=== PATIENT | female | born 1960 | race Caucasian/White ===

== ENCOUNTER 2021-10-23 09:56 | Inpatient (IN) | payer OTHER ==
[~2021-10-23] VITALS: Ht 165.1 cm; Wt 92.1 kg
[~2021-10-23 09:56] MED LIST: TRAMADOL 50 MG50 MG PO
[2021-10-23 10:06] VITALS: BP 139/82
[2021-10-23 12:56] LABS: ABSOLUTE LYMPHOCYTES 0.9 thou/uL (0.8-5.3); ABSOLUTE MONOCYTES 0.5 thou/uL (0.0-1.2); ABSOLUTE NEUTROPHILS 4.4 thou/uL (1.6-8.1); BASOPHILS 0.3 %; EOSINOPHILS 0.1 %; HEMATOCRIT 35.2 % (37.0-47.0); LYMPHOCYTES 15.5 %; MCH 29.4 pg (26.0-34.0); MCHC 34.2 g/dL (28.0-37.0); MCV 85.8 fL (80.0-100.0); MONOCYTES 8.5 %; MPV 7.4 fl. (7.2-11.1); NUCLEATED RBCS 0 /100WBC; PLATELET COUNT* 245 thou/uL (150-400); POLYS 75.6 %; WBC 5.9 thou/uL (4.0-11.0)
[2021-10-23 13:08] LABS: CALCIUM 8.2 mg/dL (8.5-10.1); CREATININE 0.8 mg/dL (0.6-1.3); POTASSIUM 3.2 mmol/L (3.5-5.1)
[2021-10-23 13:12] LABS: ALBUMIN 3.2 g/dL (3.4-5.0); TOTAL BILIRUBIN 0.7 mg/dL (<0.1-1.0); TOTAL PROTEIN 7.6 g/dL (6.4-8.2)
[2021-10-23 17:15] VITALS: BP 150/81
[2021-10-23 21:15] VITALS: BP 127/59
[2021-10-24] VITALS (8 sets, daily range): BP systolic 111–150; BP diastolic 56–79
[2021-10-24 03:43] LABS: HEMATOCRIT 31.3 % (37.0-47.0); HEMOGLOBIN 10.6 gm/dL (12.0-15.0); MCH 29.6 pg (26.0-34.0); MCHC 33.9 g/dL (28.0-37.0); MCV 87.3 fL (80.0-100.0); MPV 7.5 fl. (7.2-11.1); RBC 3.59 mil/uL (4.20-5.00)
[2021-10-24 04:01] LABS: ALBUMIN 2.7 g/dL (3.4-5.0); CREATININE 0.5 mg/dL (0.6-1.3); MAGNESIUM 2.2 mg/dL (1.8-2.4); POTASSIUM 3.4 mmol/L (3.5-5.1); TOTAL BILIRUBIN 0.5 mg/dL (<0.1-1.0); TOTAL PROTEIN 6.6 g/dL (6.4-8.2)
[2021-10-24 04:05] LABS: GLYCOHEMOGLOBIN (HGB A1C) 5.6 % (4.8-5.6)
--- NOTE | 2021-10-24 16:38 | NUR ---
Attempted to assess pt x2 - called daughter - Michelle Perez and left a message to complete assessment. CM to continue to follow for discharge planning.
[2021-10-25] VITALS: BP 140/74
[2021-10-25 04:00] VITALS: BP 139/58
--- NOTE | 2021-10-25 06:07 | NUR ---
ASSUMED CARE OF PT AFTER REPORT AT 1930. PT A&OX4. VSS. PHYSICAL ASSESSMENT COMPLETED AND CHARTED. PT ON O2 AT 5L NC. PT TRACING SR/SB ON TELE. PT UPADLIB TO BSC. DENIES PAIN. CALL LIGHT WITHIN REACH.
[2021-10-25 08:00] VITALS: BP 153/71
[2021-10-25 12:09] VITALS: BP 132/70
--- NOTE | 2021-10-25 15:33 | NUR ---
CM ATTEMPTED TO COMPLETE ASSESSMENT BT CALLING INTO ROOM AND CALLING AUTHORIZED CONTACT (LESLIE ANDREWS [phone]). CM WAS NOT ABLE TO MAKE CONTACT AND LEFT A VOICEMAIL. CM TO FOLLOWUP.
--- NOTE | 2021-10-25 17:43 | NUR ---
PT A&Ox4. VITALS STABLE. SR ON THE MONITOR. REMAINS ON 5LO2. UP AD PACO. DENIED PAIN. IV PATENT. REGULAR DIET. CALL LIGHT WITHIN REACH. WILL CONTINUE TO MONITOR.
[2021-10-25 20:00] VITALS: BP 151/77
[2021-10-26 04:17] LABS: HEMATOCRIT 31.8 % (37.0-47.0); HEMOGLOBIN 10.8 gm/dL (12.0-15.0); MCH 29.3 pg (26.0-34.0); MCV 86.1 fL (80.0-100.0); MPV 7.7 fl. (7.2-11.1); NUCLEATED RBCS 0 /100WBC; RBC 3.69 mil/uL (4.20-5.00); RDW-CV 12.9 % (10.5-14.5); WBC 7.1 thou/uL (4.0-11.0)
[2021-10-26 04:26] LABS: PLATELET COUNT* 366 thou/uL (150-400)
[2021-10-26 04:47] LABS: ALBUMIN 2.7 g/dL (3.4-5.0); CALCIUM 8.3 mg/dL (8.5-10.1); CREATININE 0.6 mg/dL (0.6-1.3); POTASSIUM 3.7 mmol/L (3.5-5.1); TOTAL BILIRUBIN 0.5 mg/dL (<0.1-1.0); TOTAL PROTEIN 6.3 g/dL (6.4-8.2)
[2021-10-26 04:50] VITALS: BP 148/76
--- NOTE | 2021-10-26 06:32 | NUR ---
ASSUMED CARE OF PT AFTER REPORT AT 1930. PT A&OX4. VSS. PHYSICAL ASSESSMENT COMPLETED AND CHARTED. PT ON O2 AT 4L NC. PT TRACING SR/SB ON TELE. PT UPADLIB. DENIES PAIN. CALL LIGHT WITHIN REACH.
[2021-10-26 08:30] VITALS: BP 140/84
[2021-10-26 08:35] LABS: ABSOLUTE LYMPHOCYTES 0.6 thou/uL (0.8-5.3); ABSOLUTE MONOCYTES 0.2 thou/uL (0.0-1.2); ABSOLUTE NEUTROPHILS 6.3 thou/uL (1.6-8.1); PLATELET ESTIMATE INCREASED
[2021-10-26 16:00] VITALS: BP 131/72
--- NOTE | 2021-10-26 17:43 | NUR ---
CM ASSESSMENT ASSESSMENT COMPLETED WITH PT VIA PHONE. PT LIVES ALONE IN SINGLE STORY HOME. PT HAS NO DME USE, SNF, HH, OR ARU HX. PT IND WITH [facility]. PT HAS NO DPOA AND DOES NOT WANT ONE AT THIS TIME. PT MAY NEED O2 AT DC. PT NOT YET MED CLEAR. CM TO FOLLOW.
[2021-10-26 20:00] VITALS: BP 162/85
--- NOTE | 2021-10-26 20:41 | NUR ---
I ASSUMED CARE OF THE PATIENT AT 0700. BED IS IN THE LOW LOCKED POSITION AND CALL LIGHT IS IN REACH. PATIENT NEEDS ARE MET DURING HOURLY ROUNDING. SHE IS ALERT AND ORIENTED X4 AND UP AD PACO TO THE COMMODE. ISOLATION IS MAINTAINED. SHE IS ABLE TO REPOSITION BY HERSELF. OXYGEN IS TITRATED. NEW IV IS PLACED, 20 G LEFT FOREARM. WILL CONTINUE TO MONITOR.
[2021-10-27] VITALS (7 sets, daily range): BP systolic 120–173; BP diastolic 67–85
[2021-10-27 04:45] LABS: ALBUMIN 2.8 g/dL (3.4-5.0); CALCIUM 8.2 mg/dL (8.5-10.1); CREATININE 0.6 mg/dL (0.6-1.3); POTASSIUM 3.9 mmol/L (3.5-5.1); TOTAL BILIRUBIN 0.5 mg/dL (<0.1-1.0); TOTAL PROTEIN 6.1 g/dL (6.4-8.2)
--- NOTE | 2021-10-27 05:00 | NUR ---
ASSUMED CARE OF PT AFTER REPORT AT 1930. PT A&OX4. VSS. PHYSICAL ASSESSMENT COMPLETED AND CHARTED. PT ON O2 AT 3L NC. PT TRACING SR/SB/ST ON TELE. PT UPADLIB TO BSC. CALL LIGHT WITHIN REACH.
[2021-10-27 05:15] LABS: NUCLEATED RBCS 0 /100WBC; WBC 7.3 thou/uL (4.0-11.0)
[2021-10-27 05:17] LABS: ABSOLUTE LYMPHOCYTES 0.6 thou/uL (0.8-5.3); ABSOLUTE MONOCYTES 0.3 thou/uL (0.0-1.2); ABSOLUTE NEUTROPHILS 6.4 thou/uL (1.6-8.1); BASOPHILS 0.2 %; HEMATOCRIT 32.8 % (37.0-47.0); HEMOGLOBIN 11.1 gm/dL (12.0-15.0); LYMPHOCYTES 8.7 %; MCH 30.5 pg (26.0-34.0); MCHC 33.8 g/dL (28.0-37.0); MCV 90.2 fL (80.0-100.0); MONOCYTES 3.9 %; PLATELET COUNT* 412 thou/uL (150-400); POLYS 87.2 %; RBC 3.64 mil/uL (4.20-5.00); RDW-CV 12.6 % (10.5-14.5)
--- NOTE | 2021-10-27 17:23 | NUR ---
CM FOLLOWUP PT NOT MED CLEAR. PT MAY BE CLEAR FOR DC ON 10/28/21 WITH HOME O2 NEEDS. CM TO FOLLOW.
[2021-10-28 04:00] VITALS: BP 153/60
[2021-10-28 04:17] LABS: ABSOLUTE MONOCYTES 0.4 thou/uL (0.0-1.2); ABSOLUTE NEUTROPHILS 7.9 thou/uL (1.6-8.1); BASOPHILS 0.2 %; HEMATOCRIT 35.4 % (37.0-47.0); LYMPHOCYTES 10.4 %; MCH 29.4 pg (26.0-34.0); MCHC 33.7 g/dL (28.0-37.0); MCV 87.1 fL (80.0-100.0); MONOCYTES 4.7 %; MPV 7.8 fl. (7.2-11.1); NUCLEATED RBCS 0 /100WBC; PLATELET COUNT* 432 thou/uL (150-400); POLYS 84.7 %; RBC 4.07 mil/uL (4.20-5.00); RDW-CV 12.8 % (10.5-14.5); WBC 9.3 thou/uL (4.0-11.0)
[2021-10-28 04:29] LABS: ALBUMIN 2.8 g/dL (3.4-5.0); CALCIUM 8.1 mg/dL (8.5-10.1); CREATININE 0.7 mg/dL (0.6-1.3); POTASSIUM 4.5 mmol/L (3.5-5.1); TOTAL BILIRUBIN 0.6 mg/dL (<0.1-1.0)
--- NOTE | 2021-10-28 04:50 | NUR ---
PT A&O X 4. ON 2.5L BY NC. MEDS GIVEN ORDERED. NO C/O PAIN. UP TO BSC INDEPENDENTLY. CALL LIGHT WITHIN REACH. WILL CONTINUE TO MONITOR.
[2021-10-28 08:00] VITALS: BP 145/78
[2021-10-28] MEDS ORDERED: PREDNISONE 10 M10 MG PO (09:00)
[2021-10-28] MEDS ORDERED: CEFDINIR300 MG PO (09:00)
[2021-10-28 12:00] VITALS: BP 124/67
[2021-10-28 14:13] VITALS: BP 124/67
[2021-10-28 15:05] VITALS: BP 124/67
--- NOTE | 2021-10-28 17:16 | NUR ---
CM FOLLOWUP PT DC HOME WITH O2 PROVIDED BY [facility] ([phone]). [facility] PAID FOR ONE MONTH SUPPLY OF O2.
--- NOTE | 2021-10-28 18:09 | NUR ---
DISCHARGED PT HOME, BELONGINGS SENT WITH PATIENT, IV D/C, WHEELCHAIR OUT TO CAR WITH HOME O2 TANK. DISCHARGE TEACHING COMPLETE
== END 2021-10-28 16:34 | disposition home or self-care (01) | DRG 177 ==
LOC: M.ERS 09:56 → M.TBA-ER 13:03 → M.ORTHSURG 10-24 10:06
PROVIDERS: Emergency Medicine Emergency Medical Services; Internal Medicine; ADMIT Internal Medicine; ATTEND Internal Medicine
PROC: XW033E5 Introduction of Remdesivir Anti-infective into Peripheral Vein, Percutaneous Approach, New Technology Group 5 (ICD-10-PCS; principal; 2021-10-23)
PROC: 5A0935A Assistance with Respiratory Ventilation, Less than 24 Consecutive Hours, High Flow/Velocity Cannula (ICD-10-PCS; 2021-10-28)
DX: U07.1 COVID-19 (principal); J80 Acute respiratory distress syndrome; B17.9 Acute viral hepatitis, unspecified; E66.01 Morbid (severe) obesity due to excess calories; E87.6 Hypokalemia; R73.9 Hyperglycemia, unspecified; Z90.710 Acquired absence of both cervix and uterus; Z87.891 Personal history of nicotine dependence; Z68.33 Body mass index [BMI] 33.0-33.9, adult